=== PATIENT | male | born 1950 | race African-American/Black ===

== ENCOUNTER 2017-03-08 08:50 | Emergency (ER) | payer BC, OTHER ==
[2017-03-08 09:01] VITALS: BP 135/73; PULSE 77; TEMP 98; BMI 24.3
[2017-03-08] MEDS ORDERED: LIDOCAINE 2.5%/PRILOCAINE 2.5% (5 Gram/TUBE) TP ONE ×2 (09:58→10:01)
--- NOTE | 2017-03-08 10:04 | PDOC ---
History of Present Illness - General Chief Complaint: Burn Stated Complaint: STEAM BURN Time Seen by Provider: 03/08/17 09:24 History Source: Patient Exam Limitations: No Limitations - History of Present Illness Initial Comments: 03/08/17 10:10 Chief complaint: Burn on face from steam at work History of present illness: Patient is a 66-year-old male with a history of hyperlipidemia here today complaining of burning sensation to upper outer lip area and chin after steam hit him in the face today at work at [employer]. Patient reports he had his goggles on therefore his eyes were not involved. Patient denies any difficulty swallowing or breathing or any coughing. He does not want any ibuprofen for burning pain of area involved. He reports that he immediately applied water to his face multiple times and used a cream for foster. 03/08/17 10:12 Timing/Duration: 1-3 hours Severity: mild (burning to nose, upper lip, chin burn by steam from work ) Associated Symptoms: reports: other (first degree burn nose, upper lip, chin from steam at work ) Past History - Past Medical History Allergies/Adverse Reactions: Allergies Allergy/AdvReac Type Severity Reaction Status Date / Time No Known Allergies Allergy Verified 03/08/17 09:01 Home Medications: Ambulatory Orders NK [No Known Home Medication] 03/08/17 Hypercholesterolemia: Yes - Surgical History Cholecystectomy: Yes - Psycho/Social/Smoking Cessation Hx Anxiety: No Suicidal Ideation: No Smoking History: Never smoked Have you smoked in the past 12 months: No Information on smoking cessation initiated: No Hx Alcohol Use: No Drug/Substance Use Hx: No Substance Use Type: None Review of Systems - Review of Systems Able to Perform ROS?: Yes Constitutional: No: Symptoms Reported HEENTM: No: Symptoms Reported Respiratory: No: Symptoms reported Cardiac (ROS): No: Symptoms Reported ABD/GI: No: Symptoms Reported : No: Symptoms Reported Musculoskeletal: No: Symptoms Reported Integumentary: Yes: Erythema (nose, upper lip, chin) Neurological: No: Symptoms reported *Physical Exam - Vital Signs Last Vital Signs Temp Pulse Resp BP Pulse Ox 98 F 77 18 135/73 100 03/08/17 08:58 03/08/17 08:58 03/08/17 08:58 03/08/17 08:58 03/08/17 08:58 - Physical Exam General Appearance: Yes: Appropriately Dressed HEENT: positive: Normal ENT Inspection Respiratory/Chest: positive: Lungs Clear, Normal Breath Sounds. negative: Chest Tender, Respiratory Distress Cardiovascular: positive: Regular Rhythm, Regular Rate, S1, S2 Integumentary: positive: Erythema (nose, upper lip, chin with no blistering of skin ) Neurologic: positive: Alert, Normal Response, Respond to painful stimul, Responsive. negative: Sensory Deficit Medical Decision Making - Medical Decision Making 03/08/17 10:12 Patient is a 66-year-old male with a history of hyperlipidemia here today complaining of burning sensation to upper outer lip area and chin after steam hit him in the face today at work at [employer]. Patient reports he had his goggles on therefore his eyes were not involved. Patient denies any difficulty swallowing or breathing or any coughing. He does not want any ibuprofen for burning pain of area involved.He reports that he immediately applied water to his face multiple times and used a cream for foster 03/08/17 10:12 First-degree burn face nose upper outer lip and chin Plan: Offered ibuprofen however patient did not want to take this. Apply a small amount of lidocaine and Prilocaine cream to nose upper outer lip area and chin Instructed the patient to purchase aloe vera gel and apply as directed by protohistorian *DC/Admit/Observation/Transfer Diagnosis at time of Disposition: Burn of face, first degree Qualifiers: Encounter type: initial encounter Qualified Code(s): T20.10XA - Burn of first degree of head, face, and neck, unspecified site, initial encounter - Discharge Dispostion Disposition: HOME Condition at time of disposition: Stable - Patient Instructions Additional Instructions: You may purchase aloe vera gel [id number] apply to reddened area on upper lip and chin as directed by protohistorian Return to emergency room if any difficulties swallowing or breathing Follow-up with your primary care provider within the next few days Patient voiced understanding of discharge instructions and all questions were answered - Post Discharge Activity Work/School Note: Back to Work
== END 2017-03-08 10:12 | disposition home or self-care (01) ==
LOC: JERFT 08:50
DX: T20.10XA Burn of first degree of head, face, and neck, unspecified site, initial encounter (principal); X13.1XXA Other contact with steam and other hot vapors, initial encounter; Y93.89 Activity, other specified; Y92.9 Unspecified place or not applicable; Y99.0 Civilian activity done for income or pay; E78.5 Hyperlipidemia, unspecified
CPT/HCPCS: 99281-25